=== PATIENT | female | born 1975 | race Caucasian/White ===

== ENCOUNTER → 2022-06-05 14:51 | Outpatient (CLI) | payer OTHER, SELFPAY ==
[2022-06-05 15:27] LABS: COVID19 -Nasal RAPID Negative (Negative)
== END ==
PROVIDERS: PCP Family Medicine; Visit Provider Obstetrics & Gynecology
DX: Z01.812 Encounter for preprocedural laboratory examination (principal); Z20.822 Contact with and (suspected) exposure to COVID-19
CPT/HCPCS: 87635

== ENCOUNTER 2022-06-07 14:44 | Inpatient (IN) | payer OTHER, SELFPAY ==
[2022-05-31 07:13] VITALS: BMI 39.6
[2022-06-06] VITALS (17 sets, daily range): BP systolic 143–165; BP diastolic 89–110; PULSE 81–105; RESP 16–27; TEMP 36.4–37.2; O2SAT 94–98; BMI 39.6; BMI 40.2
--- NOTE | 2022-06-06 | PATH_ITS ---
[facility] Accession Number: [id number] . 01 Material submitted: . ovary - UTERUS AND LEFT OVARY . 01 Diagnosis: Uterus and Left Ovary, Supracervical Hysterectomy and Left Oophorectomy (Weight 19 grams): No well-preserved endometrial surface identified. Myometrium with involvement by adenomyosis and with a small leiomyoma (4 mm); negative for atypia or malignancy. Ovary with stromal thecosis, a hemorrhagic corpus luteum cyst, and with a benign serous cyst (4 mm); negative for atypia or malignancy. [facility] 06/11/2022 1610 Local . 01 Electronically signed: . Minerva Broderick MD, Pathologist NPI- [id number] . 01 Gross description: . Received in formalin labeled with the patient's name and uterus, left ovary consists of an intact uterus (39 grams, 3.8 cm SI, 5.2 cm ML, and 3.4 cm AP) with ovary (19 grams, 3.6 x 3.1 x 2.5 cm) and no cervix, second ovary or fallopian tubes. Due to the lack of attached adnexa and cervix, orientation cannot be determined. The uterine serosa is ryan smooth and glistening with multiple areas of pinpoint hemorrhage identified measuring up to 0.4 cm in greatest dimension. No endocervical canal is identified. The endometrial cavity measures 1.7 cm from cornu to cornu, 2.6 cm in length with pink to ryan velvety endometrium averaging 0.1 cm thick. Multiple fragments of ryan friable soft tissue are found within the endometrial cavity not adhered to the surface. The myometrium is pink to ryan, well circumscribed, firm, and measures 1.4 cm in maximum thickness. A single white whorled well-circumscribed nodule is identified intramurally measuring 0.4 cm in greatest dimension. No additional lesions, hemorrhage, or necrosis are identified. The ovary is ryan and cerebriform, and sectioning reveals multiple smooth thin-walled cystic structures filled with ryan serous fluid and measuring up to 1.3 cm in greatest dimension. Also identified is a pale yellow ryan relatively ill-defined area measuring 3.3 cm in greatest dimension. Minimal physiologic tissue is identified and is distorted by the cystic structures. Rotary Drier sections are submitted as follows: . A1: Full-thickness section. A2: Opposite full-thickness section. A3: Nodule, serosal hemorrhagic area, and endometrial tissue fragment. A4-A5: Rotary Drier ovary. ([id number]) /MRV 06/07/2022 1508 Local . 01 Pathologist provided ICD-10: Z87.410, N99.89, N94.9 . 01 CPT . 878416 Specimen Comment: A courtesy copy of this report has been sent to [phone] Performed at: 01 [facility] [address] [place] [address], [place], [place] [id number] MD Uriel Kamara MD Phone: [phone]
[2022-06-06] MEDS: LACTATED RINGERS 1,000 ML 100 ML IV ×5 (08:14→15:36)
[2022-06-06] MEDS: SCOPOLAMINE 1 PATCH TOP (08:35)
[2022-06-06] MEDS: ONDANSETRON 4 MG/2 ML INJ IV (08:36)
--- NOTE | 2022-06-06 10:06 | SUR.OPER ---
Lithotomy on padded OR bed. [place] Pad Positioner under torso. Head on pillow, arms padded and tucked at sides. Legs secured in padded yellow fins stirrups.
--- NOTE | 2022-06-06 10:39 | PM.PREOP ---
Pre-operative Note COVID-19 COVID-19 status: Negative Result date/Date tested (Pos, Neg/Pending): 06/05/22 Criteria for continued procedure: Deterioration of the patient's condition or overall health and Non-surgical alternatives not available or appropriate per current SOC Interval Note History & Physical reviewed/Exam performed by Physician: Yes Changes to H&P: No H&P completed within 30 days and has changed as indicated here:: 05/30/22
[2022-06-06] MEDS: CEFAZOLIN 2 GM/100 ML PREMIX 100 ML IV (10:45)
[2022-06-06] MEDS: BUPIVACAINE 0.5% W/ EPI (PF) 30 ML VIAL INJ (11:41)
--- NOTE | 2022-06-06 13:05 | PM.GYNOP.1 ---
Operative Date/Time/Diagnoses Date of procedure: 06/06/22 Time of procedure: 13:05 Pre-op diagnosis: Endosalpingiosis Left lower quadrant pain Genital warts Post-op diagnosis: same Procedure & Clinicians Procedure: Procedures Operation Date: 06/06/22 09:30 Actual Procedure Side Surgeon p Open Supracervical hysterectomy & left oophorectomy, destruction genital warts Blanca Rodas MD Indications: Endosalpingiosis Left lower quadrant pain Genital warts Surgeon: Blanca Rodas Agricultural Production Engineer: Yoli Francis Anesthesia Type: General and Local Operative Notes Findings: 6 week size anteverted uterus Extensive adhesions around the umbilicus on the anterior abdominal wall Tubes previously removed Enlarged left ovary Left adnexal adhesions Six genital wart lesions on the left vulva and 1 on the proximal right buttocks Closure Type: primary Specimen(s): uterus (Left ovary) Applied: catheter Estimated blood loss (mL): 100 Blood products transfused: none Procedure in detail: Patient was taken to the operating room where she was placed in the dorsal supine position. After adequate general endotracheal anesthesia was achieved, she was placed in the dorsal lithotomy position, and prepped and draped in the usual sterile fashion. A time-out was performed. A bivalve speculum was placed into the vagina and the anterior lip of the cervix was grasped with a single-tooth tenaculum. The cervical os was sequentially dilated until the Zumi uterine manipulator could pass easily into the endometrial cavity. Single-tooth tenaculum was removed from the anterior lip of the cervix. [place] speculum was removed from the vagina. Attention was turned to the abdomen where 6 cc of 0.5% Marcaine with epinephrine were injected in the umbilical fold. A 5 mm incision was made. The long Veress needle was placed into the peritoneal cavity, and its placement confirmed by aspiration and drop test. On initial insufflation with carbon dioxide, the pressures were high in the 12-15 millimeter mercury range. Veress needle was removed. One more attempt was made and still had high pressures. Decision was made to proceed with a Hasan open procedure. The incision was extended to 2 cm. Allis clamps were placed at the edges of the incision. The incision was brought down to the fascia which was incised in the midline. Upon getting close to the peritoneum, there were adhesions of the anterior abdominal wall. A decision was made to proceed with open procedure. A Pfannenstiel skin incision was made 2 finger breaths above the pubic symphysis and carried through to the underlying layer of fascia. Fascia was nicked in the midline in the incision extended bilaterally with the Louis scissors. The superior aspect of the fascial incision was grasped with the Olivia clamps, elevated, and the underlying rectus muscles dissected off sharply and bluntly. The inferior aspect of this incision was grasped with the Olivia clamps, elevated, and the underlying rectus muscles dissected off sharply and bluntly. The rectus muscles were in the midline. The peritoneum was grasped between 2 hemostats and entered sharply with the Metzenbaum scissors. This incision was extended superiorly and inferiorly with good visualization of the bladder. The Josie Gleason retractor was placed into the incision and the bowel packed away with moist lap sponges. Bladder blade was inserted. The uterus was grasped with a 4 tooth tenaculum. The round ligament on the right side was clamped, transected, and suture ligated with 0 Vicryl. This was tagged with a hemostat. The broad ligament was entered sharply with the Metzenbaum scissors and the bladder flap created half-way across. The uterine arteries on the right side were clamped, transected, and suture ligated with 0 Vicryl. On the left side the round ligament was clamped, transected, and suture ligated with 0 Vicryl. This was tagged with a hemostat. The infundibulopelvic ligament on the left side was doubly clamped, transected, free tied with 0 Vicryl and then suture ligated with 0 Vicryl. Hemostasis was achieved. The broad ligament was entered with the Metzenbaum scissors and the remainder of the bladder flap was created sharply. Using a moistened sponge stick, bladder was taken down off of the lower uterine segment and cervix. The uterine arteries on the left side were doubly clamped, transected, and suture ligated with 0 Vicryl. The Zumi uterine manipulator was removed from the uterus. Using the cautery, the uterus was amputated from the cervix. The cervix was closed with 4 simple interrupted sutures with 0 Vicryl. Hemostasis was achieved. Pelvis was copiously irrigated with warm normal saline. There was no bleeding noted. The tagged sutures were cut. The lap sponges were removed from the abdomen. The O'Garo JamesSantos retractor was removed from the incision. Peritoneum was closed with 2 0 Vicryl in a running fashion. The fascia was reapproximated using 0 Vicryl in a running fashion. Six simple interrupted sutures with 3-0 Vicryl were used to reapproximate subcutaneous layer. Skin was closed with 4-0 Monocryl in a subcuticular fashion. Steri-Strips and the Aquacel dressing were placed. At the umbilicus the fascia was closed with 0 Vicryl. Subcutaneous layer was closed with 2 simple interrupted sutures with 3-0 Vicryl. The skin was closed with 4-0 Monocryl in a subcuticular fashion. Steri-Strips and an Allevyn dressing were placed. Attention was then turned to the vulva where 6 condyloma acuminata were cauterized with 2 sources of suction. All personnel were wearing 3:00 a.m. masks in the operating room. Sponge, lap, and instrument counts were correct x2. The patient tolerated the procedure well, and was taken to PACU in stable condition. Complications: none Post-operative Condition: stable Disposition: PACU Plan for aftercare: To acute care after recovery
[2022-06-06] MEDS: HYDROMORPHONE 2 MG INJ IV ×8 (13:13→14:26)
[2022-06-06] MEDS: OXYCODONE/ACETAMINOPHEN 5/325 TABLET 1 TAB PO ×2 (13:16→13:46)
[2022-06-06] MEDS: fentaNYL 100 MCG/2 ML INJ IV ×4 (13:26→13:52)
--- NOTE | 2022-06-06 14:32 | SUR.PHASEI ---
Assumed care. VS stable. Patient awake, repositioned to comfort.
--- NOTE | 2022-06-06 15:06 | SUR.PHASEI ---
Report called to [facility].
--- NOTE | 2022-06-06 15:32 | SUR.PHASEI ---
Patient transferred to the floor on a bed with her belongings bag. Report given to UMAIR Lee. VS stable. Lilly-pad and abdominal dressings CDI. IV saline locked.
[2022-06-06] MEDS: KETOROLAC 30 MG/ML VIAL IV ×2 (15:36→21:17)
[2022-06-06] MEDS: ACETAMINOPHEN 325 MG TABLET 650 MG PO (16:28)
[2022-06-06] MEDS: OXYCODONE IR 5 MG TABLET PO ×2 (16:28→18:05)
[2022-06-06] MEDS: LORATADINE 10 MG TABLET 40 MG PO (18:05)
[2022-06-06] MEDS: MONTELUKAST 10 MG TABLET PO (18:05)
[2022-06-06] MEDS: METOCLOPRAMIDE 10 MG/2 ML INJ IV (18:29)
[2022-06-06] MEDS: HYDROMORPHONE 0.5 MG INJ IV ×2 (18:33→20:26)
[2022-06-06] MEDS: DOCUSATE 100 MG CAPSULE 200 MG PO (20:25)
[2022-06-06] MEDS: LOSARTAN 50 MG TABLET PO (21:16)
[2022-06-06] MEDS: OXYCODONE IR 10 MG TABLET PO (21:16)
[2022-06-06] MEDS: HYDROMORPHONE 0.5 MG INJ 1 MG IV (23:21)
[2022-06-07] VITALS (7 sets, daily range): BP systolic 132–153; BP diastolic 68–98; PULSE 70–94; RESP 18; TEMP 36–36.6; O2SAT 96–97
[2022-06-07] MEDS: OXYCODONE IR 10 MG TABLET PO ×3 (01:29→13:53)
[2022-06-07] MEDS: LACTATED RINGERS 1,000 ML 100 ML IV ×2 (01:47→11:32)
[2022-06-07] MEDS: HYDROMORPHONE 0.5 MG INJ 1 MG IV ×6 (02:16→23:58)
[2022-06-07] MEDS: KETOROLAC 30 MG/ML VIAL IV ×2 (03:22→09:43)
--- NOTE | 2022-06-07 06:03 | PC.NURSE ---
Patient's urinary catheter removed at 0550, pt DTV, tolerated well. Scant vaginal drainage. Patient stood at bedside with assist, tolerated well.
[2022-06-07 06:24] LABS: Add Manual Diff / Slide Review NO; Basophils Absolute Auto 0 /uL (0-100); Basophils Percent Auto 0.4 % (0-2); Eosinophils Absolute Auto 0 /uL (0-450); Hematocrit 38.6 % (36-46); Hemoglobin 13.3 g/dL (12.0-16.0); Lymphocytes Absolute Auto 1300 /uL (1100-4500); Lymphocytes Percent Auto 14.1 % (25-40); Mean Corpuscular HGB Conc 34.5 % (30-36); Mean Corpuscular Hemoglobin 32.2 PG (26-34); Mean Corpuscular Volume 93.3 fL (80-100); Monocytes Absolute Auto 800 /uL (0-900); Monocytes Percent Auto 8.7 % (3-14); Neutrophils Absolute Auto 7100 /uL (1500-7000); Neutrophils Percent Auto 76.8 % (50-75); Platelet Count 199 X10^3/uL (150-400); Red Blood Cell Count 4.14 X10^6/uL (4.0-5.2); Red Cell Distribution Width 13.2 % (11.6-14.8); White Blood Cell Count 9.2 X10^3/uL (4.5-11.0)
[2022-06-07] MEDS: ACETAMINOPHEN 325 MG TABLET 650 MG PO ×2 (07:53→13:53)
[2022-06-07] MEDS: MONTELUKAST 10 MG TABLET PO (08:42)
[2022-06-07] MEDS: LOSARTAN 50 MG TABLET PO ×2 (08:42→20:32)
[2022-06-07] MEDS: DOCUSATE 100 MG CAPSULE 200 MG PO ×2 (08:42→20:32)
[2022-06-07] MEDS: valACYclovir 500 MG TABLET PO (08:42)
[2022-06-07] MEDS: LORATADINE 10 MG TABLET 40 MG PO (08:46)
[2022-06-07] MEDS: estradioL 1 MG TABLET 0.5 MG PO (09:43)
--- NOTE | 2022-06-07 12:01 | P.PN_ITS ---
Subjective Subjective Date Patient Seen: 06/07/22 Time Patient Seen: 09:30 Interval history: Patient is a 47-year-old 0 postop day # 1 status post an open ybrne pracervical hysterectomy with left oophorectomy. An attempt at laparoscopy was made but due to adhesions was unable to complete laparoscopic LEEP. Patient had some pain management issues last evening. These have resolved this morning. She is tolerating a diet. She has voided twice without the catheter. Exam Vital Signs (past 8 hours): - 06/07/22 08:42 06/07/22 10:21 Temperature 97.5 F L Pulse Rate 77 81 Respiratory Rate 18 Blood Pressure 132/77 153/98 H Pulse Oximetry 97 Oxygen Delivery Method Room Air Oxygen Flow Rate 0 Narrative Exam Narrative: Generally: Patient is sitting up in bed, no acute distress Lungs: Clear to auscultation bilaterally Cardiovascular: Regular rate and rhythm Abdomen: Soft, appropriately tender. Good bowel sounds. Incision: Umbilical incision clean dry and intact with dressing. Pfannenstiel incision clean dry and intact with Aquacel. Extremities: Negative Homans Objective Labs Result Diagrams: 06/07/22 06:00 Labs: Laboratory Results - last 24 hr 06/07/22 06:00 WBC 9.2 RBC 4.14 Hgb 13.3 Hct 38.6 MCV 93.3 MCH 32.2 MCHC 34.5 RDW 13.2 Plt Count 199 Neut % (Auto) 76.8 H Lymph % (Auto) 14.1 L Frontier % (Auto) 8.7 Eos % (Auto) 0.0 L Baso % (Auto) 0.4 Neut # (Auto) 7100 H Lymph # (Auto) 1300 Frontier # (Auto) 800 Eos # (Auto) 0 Baso # (Auto) 0 PFSH Medical History Abnormal Pap smear of cervix (~2008) Allergies (~1989) Carpal tunnel syndrome (~2016) Chicken pox (~1983) Chronic back pain (~2012) Difficult intubation Genital warts (~1997) Headache (~2009) Heavy menstrual period (~2014) Human papilloma virus (~2005) Hypertension (~2010) Irregular menstrual cycle (~1999) Migraines (~2015) Ovarian cyst (~2008) Painful menstrual periods (~2011) Recurrent sinusitis (~2011) Surgical History (Updated 05/31/22 @ 07:13 by Malaika Ochoa RN) Anesthesia History of oophorectomy (~09/27/21) History of salpingectomy (~09/27/21) S/P T&A (status post tonsillectomy and adenoidectomy) Status post cataract surgery Status post endometrial ablation Family History (Updated 04/09/22 @ 15:24 by Natalya Redd) Father Multiple sclerosis Mother COVID-19 Social History household members: spouse Smoking Status: Former smoker alcohol intake: current Assessment & Plan Post-op Postoperative Procedures: Procedures Operation Date: 06/06/22 09:30 Actual Procedure Side Surgeon p Open Supracervical hysterectomy & left oophorectomy, destruction genital warts Blanca Rodas MD Postoperative day: 1 Postoperative status: doing well Postoperative plan: routine post-op care Postoperative plan narrative: Restart estradiol Time Spent With Patient Time with patient: 15-24 minutes Quality VTE Deep Vein Thrombosis/Pulmonary Embolism Present on Admission: No
[2022-06-07] MEDS: IBUPROFEN 600 MG TABLET PO ×2 (15:48→22:41)
[2022-06-07] MEDS: methocarbamoL 500 MG TABLET PO (22:41)
[2022-06-08] VITALS (9 sets, daily range): BP systolic 129–173; BP diastolic 92–112; PULSE 74–86; RESP 14–18; TEMP 35.7–37; O2SAT 96–98
[2022-06-08] MEDS: OXYCODONE IR 10 MG TABLET PO ×4 (02:39→18:14)
[2022-06-08] MEDS: ACETAMINOPHEN 325 MG TABLET 650 MG PO ×4 (02:40→21:18)
--- NOTE | 2022-06-08 02:46 | PC.NURSE ---
Day shift nurse reported fluids were disconnected per patient request. Reattempted to connect IVF, patient declined stating she is drinking water and voiding clear light yellow urine.
[2022-06-08] MEDS: HYDROMORPHONE 0.5 MG INJ 1 MG IV (06:17)
--- NOTE | 2022-06-08 08:51 | CM.DANOTE ---
Initial DCP Assessment Note Pt is a 47 yo female, resident of [place], met w/patient and spouse POD#1 from open supracervical hysterectomy with left oophorectomy by Dr Rodas PCP: Adrian Anderson Payer: Eddie YOUNGER Reviewed chart, pt discussed in multidisciplinary rounds .11.27; expected to DC .12.25 Patient tells this RECORDS MANAGER that she is confident returning home upon DC to the care and support of her [place]. Patient feels she has all she needs for her recovery once home. No barriers identified at this time to patient's safe discharge home w/spouse to assist; close outpatient f/u recommended. RADHA Hood Discharge Planning/Care Management CM Discharge Assessment Start: 06/08/22 08:48 Freq: Status: Active Protocol: Document 06/08/22 08:48 JESSICA (Rec: 06/08/22 08:51 JESSICA [id number]) Discharge Planning Assessment Assigned [employer] Director RADHA Lucio DPOA/Assigned Designee Name [place], spouse Contact Information [phone], cell Advance Directives? No History Provided By Patient,Medical Record Has Patient been admitted in last 30 No days? Prior Living Arrangements House Household Members spouse Type of transporation used prior to Drives own vehicle admit Independent with ADL's Yes Is patient alert and oriented? Yes Barriers to Discharge No Comment Home w/spouse and close outpatient follow up Discharge Plan Home Referrals Initiated None needed
[2022-06-08] MEDS: IBUPROFEN 600 MG TABLET PO ×4 (09:45→23:11)
[2022-06-08] MEDS: DOCUSATE 100 MG CAPSULE 200 MG PO ×2 (09:48→19:55)
[2022-06-08] MEDS: MONTELUKAST 10 MG TABLET PO (09:49)
[2022-06-08] MEDS: LOSARTAN 50 MG TABLET PO ×2 (09:49→19:56)
[2022-06-08] MEDS: LORATADINE 10 MG TABLET 40 MG PO (09:50)
[2022-06-08] MEDS: estradioL 1 MG TABLET 0.5 MG PO (09:52)
[2022-06-08] MEDS: valACYclovir 500 MG TABLET PO (11:32)
[2022-06-08] MEDS: methocarbamoL 500 MG TABLET PO ×3 (14:13→23:15)
[2022-06-08] MEDS: HYDROMORPHONE 2 MG TABLET PO ×2 (15:20→19:35)
--- NOTE | 2022-06-08 15:25 | PM.PNPO.1 ---
Subjective Subjective Date Patient Seen: 06/08/22 Time Patient Seen: 09:30 Interval history: Patient is a 47-year-old 2 para 0 postop day # 2 status post open supracervical hysterectomy with left oophorectomy. Patient has been getting IV to lot it for breakthrough pain. She has not been getting scheduled Tylenol and ibuprofen. She is still having burning at the incision. Exam Vital Signs (past 8 hours): - 06/08/22 07:49 06/08/22 11:31 06/08/22 07:40 Temperature 96.6 F L 96.6 F L Pulse Rate 81 76 Respiratory Rate 16 16 Blood Pressure 163/103 H 129/92 H Pulse Oximetry 98 98 Oxygen Delivery Method Room Air Oxygen Flow Rate 0 0 Oxygen Delivery Method Room Air Oxygen Flow Rate 0 Narrative Exam Narrative: Generally: Patient is sitting up in bed, no acute distress Lungs: Clear to auscultation bilaterally Cardiovascular: Regular rate and rhythm Abdomen: Soft, appropriately tender. Good bowel sounds. Incisions: Clean dry and intact with bandages. Ice pack present on lower incision. Extremities: Negative Homans, no edema Objective Labs Result Diagrams: 06/07/22 06:00 [facility] Medical History Abnormal Pap smear of cervix (~2008) Allergies (~1989) Carpal tunnel syndrome (~2016) Chicken pox (~1983) Chronic back pain (~2012) Difficult intubation Genital warts (~1997) Headache (~2009) Heavy menstrual period (~2014) Human papilloma virus (~2005) Hypertension (~2010) Irregular menstrual cycle (~1999) Migraines (~2015) Ovarian cyst (~2008) Painful menstrual periods (~2011) Recurrent sinusitis (~2011) Surgical History (Updated 05/31/22 @ 07:13 by Malaika Ochoa RN) Anesthesia History of oophorectomy (~09/27/21) History of salpingectomy (~09/27/21) S/P T&A (status post tonsillectomy and adenoidectomy) Status post cataract surgery Status post endometrial ablation Family History (Updated 04/09/22 @ 15:24 by Natalya Redd) Father Multiple sclerosis Mother COVID-19 Social History household members: spouse Smoking Status: Former smoker alcohol intake: current Assessment & Plan Post-op Postoperative Procedures: Procedures Operation Date: 06/06/22 09:30 Actual Procedure Side Surgeon p Open Supracervical hysterectomy & left oophorectomy, destruction genital warts Blanca Rodas MD Postoperative day: 2 Postoperative status: marginal pain control Postoperative plan narrative: Scheduled ibuprofen and Tylenol today Primary pain medication oxycodone Dilaudid for breakthrough pain only Anticipate discharge June 09, 2022 Time Spent With Patient Time with patient: 15-24 minutes Quality VTE Deep Vein Thrombosis/Pulmonary Embolism Present on Admission: No
[2022-06-08] MEDS: OXYCODONE IR 5 MG TABLET PO (23:10)
[2022-06-09] VITALS (7 sets, daily range): BP systolic 145–157; BP diastolic 92–112; PULSE 74–88; RESP 16–18; TEMP 36.4–36.5; O2SAT 94–97
[2022-06-09] MEDS: OXYCODONE IR 10 MG TABLET PO ×5 (01:21→20:14)
[2022-06-09] MEDS: methocarbamoL 500 MG TABLET PO ×2 (05:13→17:16)
[2022-06-09] MEDS: ACETAMINOPHEN 325 MG TABLET 650 MG PO ×4 (05:13→21:35)
[2022-06-09] MEDS: IBUPROFEN 600 MG TABLET PO ×4 (05:13→23:55)
[2022-06-09] MEDS: LORATADINE 10 MG TABLET 40 MG PO (08:45)
[2022-06-09] MEDS: DOCUSATE 100 MG CAPSULE 200 MG PO ×2 (08:45→20:14)
[2022-06-09] MEDS: LOSARTAN 50 MG TABLET PO ×2 (08:45→20:15)
[2022-06-09] MEDS: valACYclovir 500 MG TABLET PO (08:45)
[2022-06-09] MEDS: MONTELUKAST 10 MG TABLET PO (08:45)
[2022-06-09] MEDS: estradioL 1 MG TABLET 0.5 MG PO (08:45)
[2022-06-09] MEDS: AMPICILLIN/SULBACTAM 3 GM 3 GM in SODIUM CHLORIDE 0.9% 100 ML IV ×3 (11:18→23:25)
--- NOTE | 2022-06-09 12:14 | PM.PNPO.1 ---
Subjective Subjective Date Patient Seen: 06/09/22 Time Patient Seen: 09:30 Interval history: Postop day # 3 status post open supracervical hysterectomy with left oophorectomy. Patient reports that she has continued to have pain management issues. She is having more abdominal pain. She is passing flatus. Exam Vital Signs (past 8 hours): - 06/09/22 05:25 06/09/22 08:45 06/09/22 09:30 Temperature 97.5 F L Pulse Rate 88 88 75 Respiratory Rate 16 16 Blood Pressure 155/92 H 155/92 H 150/102 H Pulse Oximetry 96 97 Oxygen Delivery Method Oxygen Flow Rate 0 0 06/09/22 07:00 Temperature Pulse Rate Respiratory Rate Blood Pressure Pulse Oximetry Oxygen Delivery Method Room Air Oxygen Flow Rate Oxygen Delivery Method Room Air Oxygen Flow Rate 0 Narrative Exam Narrative: Generally: Patient lying in bed, no acute distress Abdomen: There is a dressing over the umbilical incision. He there is an Aquacel dressing over the Pfannenstiel incision. In between the 2 bandages there is an erythematous area that is warm to touch. Extremities: Trace edema, negative Homans Objective Labs Result Diagrams: 06/07/22 06:00 [facility] Medical History Abnormal Pap smear of cervix (~2008) Allergies (~1989) Carpal tunnel syndrome (~2016) Chicken pox (~1983) Chronic back pain (~2012) Difficult intubation Genital warts (~1997) Headache (~2009) Heavy menstrual period (~2014) Human papilloma virus (~2005) Hypertension (~2010) Irregular menstrual cycle (~1999) Migraines (~2015) Ovarian cyst (~2008) Painful menstrual periods (~2011) Recurrent sinusitis (~2011) Surgical History (Updated 05/31/22 @ 07:13 by Malaika Ochoa RN) Anesthesia History of oophorectomy (~09/27/21) History of salpingectomy (~09/27/21) S/P T&A (status post tonsillectomy and adenoidectomy) Status post cataract surgery Status post endometrial ablation Family History (Updated 04/09/22 @ 15:24 by Natalya Redd) Father Multiple sclerosis Mother COVID-19 Social History household members: spouse Smoking Status: Former smoker alcohol intake: current Assessment & Plan Post-op Postoperative Procedures: Procedures Operation Date: 06/06/22 09:30 Actual Procedure Side Surgeon p Open Supracervical hysterectomy & left oophorectomy, destruction genital warts Blanca Rodas MD Postoperative day: 3 Postoperative status narrative: Cellulitis of the abdominal wall between umbilicus and Pfannenstiel Begin IV antibiotics Postoperative plan: see orders Postoperative plan narrative: IV antibiotics Time Spent With Patient Time with patient: 15-24 minutes Quality VTE Deep Vein Thrombosis/Pulmonary Embolism Present on Admission: No
[2022-06-09] MEDS: HYDROMORPHONE 2 MG TABLET PO ×2 (17:16→23:09)
--- NOTE | 2022-06-09 17:51 | PC.NURSE ---
Pt is AxOx4, independent and cooperative. VSS, mostly c/o pain abdomen and constantly asking for pain med around the clock. Pt also has redness above the incision and it is also painful. Pt is getting IV Unasyn 3g for cellulites. Otherwise, pt is doing well and eating well. Pt took a shower today. No other changes. Continue monitor.
[2022-06-10] VITALS: BP 164/99
[2022-06-10] MEDS: OXYCODONE IR 10 MG TABLET PO ×4 (00:48→12:12)
[2022-06-10] MEDS: ACETAMINOPHEN 325 MG TABLET 650 MG PO ×2 (03:51→10:40)
[2022-06-10] MEDS: HYDROMORPHONE 2 MG TABLET PO ×2 (03:51→07:11)
[2022-06-10 03:55] VITALS: BP 154/96; PULSE 81; RESP 14; TEMP 36.3; O2SAT 98
[2022-06-10] MEDS: AMPICILLIN/SULBACTAM 3 GM 3 GM in SODIUM CHLORIDE 0.9% 100 ML IV ×2 (05:16→10:17)
[2022-06-10] MEDS: IBUPROFEN 600 MG TABLET PO ×2 (05:24→11:17)
[2022-06-10 08:02] VITALS: BP 150/102; PULSE 71; RESP 16; TEMP 36.6; O2SAT 98
[2022-06-10 08:25] VITALS: BP 152/102; PULSE 71
[2022-06-10] MEDS: LOSARTAN 50 MG TABLET PO (08:25)
[2022-06-10] MEDS: valACYclovir 500 MG TABLET PO (08:26)
[2022-06-10] MEDS: polyethylene glycoL 3350 17 GM POWD.PACK PO (08:26)
[2022-06-10] MEDS: MONTELUKAST 10 MG TABLET PO (08:26)
[2022-06-10] MEDS: DOCUSATE 100 MG CAPSULE 200 MG PO (08:26)
[2022-06-10] MEDS: LORATADINE 10 MG TABLET 40 MG PO (08:26)
[2022-06-10] MEDS: estradioL 1 MG TABLET 0.5 MG PO (08:27)
[2022-06-10] MEDS: methocarbamoL 500 MG TABLET PO (08:27)
--- NOTE | 2022-06-10 12:15 | PC.NURSE ---
Pt is AxOx4, independent and cooperative. VSS, c/o pain on abd and recieves her scheduled Tylenol and Ibuprofen.Also, pt is getting joey PRN Oxy Q4 hrs with good effect. Redness above incision has gotten better and decreased the size since yesterday. D/c instruction given to pt and explained the s/e of opioid and encouraged to drink plenty of fluid and eating vegetables and fibers. No other changes. Pt is ready to d/c home.
--- NOTE | 2022-08-17 18:16 | P.DS_ITS ---
History of Present Illness History of Present Illness Date Patient Seen: 06/10/22 Time Patient Seen: 10:30 Chief complaint: [facility] *OPB Narrative: 47-year-old 2 para 0 with pelvic pain status post endometrial ablation. Also diagnosis of endosalpingiosis. Discharge Providers Provider Date of admission: 06/07/22 14:44 Discharge Date: 06/10/22 Primary care physician: Ed Anderson MD Discharge provider: Blanca oRdas MD Summary Hospital Course Discharge Diagnosis: Endosalpingiosis Extensive abdominal/pelvic adhesions Left adnexal adhesions Condyloma acuminata Cellulitis around the surgical wound Hospital Course: Patient is a 47-year-old who presented on June 06, 2022 for a scheduled laparoscopic supracervical hysterectomy with left oophorectomy and destruction of genital warts. Due to adhesions, an open procedure was performed. Her Rios catheter was removed on postop day #1. She was able to void without the catheter. She did have some pain management issues which were requiring IV Dilaudid. On June 08, 2022 patient was still having some pain management issues and we began scheduled medications. On June 09, 2022 she had more abdominal pain and had erythema around the incision consistent with cellulitis. She was started on IV antibiotics. On June 10, 2022 significantly decreased erythema and warmth around the incision. She was discharged home on postop day # 4. Status at Discharge Cognitive/behavioral status at discharge: oriented Functional status at discharge: independent ambulation Overall status at discharge: patient is progressing back to baseline Time Spent with Patient Time spent: Less than 30 minutes Exam Vital Signs (past 8 hours): Oxygen Delivery Method Room Air Oxygen Flow Rate 0 Narrative Exam Narrative: Generally: Patient is sitting up in bed, no acute distress Lungs: Clear to auscultation bilaterally Cardiovascular: Regular rate and rhythm Abdomen: Soft, appropriately tender. Incision: Aquacel dressing in place. Significantly decreased erythema and warmth around the incision. Extremities: No edema, negative Homans Objective Labs Result Diagrams: 06/07/22 06:00 [facility] Medical History (Updated 06/18/22 @ 16:05 by Blanca Rodas MD) Abnormal Pap smear of cervix (~2008) Allergies (~1989) Carpal tunnel syndrome (~2016) Chicken pox (~1983) Chronic back pain (~2012) Difficult intubation Genital warts (~1997) Headache (~2009) Heavy menstrual period (~2014) Human papilloma virus (~2005) Hypertension (~2010) Irregular menstrual cycle (~1999) Migraines (~2015) Ovarian cyst (~2008) Painful menstrual periods (~2011) Recurrent sinusitis (~2011) Surgical History (Updated 05/31/22 @ 07:13 by Malaika Ochoa RN) Anesthesia History of oophorectomy (~09/27/21) History of salpingectomy (~09/27/21) S/P T&A (status post tonsillectomy and adenoidectomy) Status post cataract surgery Status post endometrial ablation Family History (Updated 04/09/22 @ 15:24 by Natalya Redd) Father Multiple sclerosis Mother COVID-19 Social History household members: spouse Smoking Status: Former smoker alcohol intake: current Discharge Assessment & Plan Assessment and Plan Assessment: 47-year-old 2 para 0 postop day #4 status post open supracervical hysterectomy with left oophorectomy and destruction of condyloma acuminata of the vulva Superficial cellulitis of the abdomen which is markedly improved Plan of Treatment: Discharge to home Follow-up in 1 week Discharge Plan Discharge Plan Patient Disposition: Home Provider Discharge Comment: Call with fever, chills, redness or drainage around the incisions Tylenol 650mg every 6 hours as needed Ibuprofen 600mg every 6 hours as needed Probiotics Discharge orders & Medications Prescriptions: New oxycodone 10 mg tablet 10 mg PO Q6H PRN (Reason: pain) Qty: 30 0RF hydromorphone [Dilaudid] 2 mg tablet 2 mg PO Q6H PRN (Reason: pain) Qty: 30 0RF amoxicillin-pot clavulanate 875-125 mg tablet 1 tab PO BID Qty: 14 0RF Continued ondansetron HCl 4 mg tablet 4 mg PO Q8H PRN (Reason: Nausea) losartan 50 mg tablet 50 mg PO BID valacyclovir 500 mg tablet 500 mg PO DAILY montelukast [Singulair] 10 mg tablet 10 mg PO DAILY loratadine [Claritin] 10 mg tablet 40 mg PO DAILY methocarbamol 500 mg tablet 500 mg PO QID PRN (Reason: Muscle Spasm) estradiol 0.5 mg tablet 0.5 mg PO DAILY Qty: 30 3RF oxycodone 5 mg tablet 5 mg PO Q4H PRN (Reason: pain) Qty: 20 0RF No Action lidocaine 4 % gel 1 applic topical BID-QID PRN (Reason: pain) Qty: 30 1RF Rx Instructions: apply 0.25 gm to affected area 4x/day as needed silver sulfadiazine [Silvadene] 1 % cream 1 applic topical BID Qty: 50 0RF Rx Instructions: apply 0.25 gm to affected areas twice a day until healed Follow up/Referrals: Blanca Rodas MD [Physician] - 06/18/22 (Pt has postop appt on 06/18/22) Diet/Activity/Treatments Diet: Regular Activity: No heavy lifting, nothing more than a gallon of milk Skin/Wound/Dressing Care Report to your healthcare provider any signs of infection, such as:: chills, fever, increased pain, unusual drainage and unusual redness Visit Report/Discharge Packet Instructions: Non-Medication Pain Relief, DI for Hysterectomy, DI for Laparoscopy, DI for Constipation, DI for Prescription Opioid Use, DI for Taking Pain Medication Discharge Data Primary Care Provider: Adrian Anderson [facility] Deep Vein Thrombosis/Pulmonary Embolism Present on Admission: No
== END 2022-06-10 12:54 | disposition home or self-care (01) | DRG 742 ==
LOC: OR 15:09 → AC 15:11
PROVIDERS: Admitting Provider Obstetrics & Gynecology; PCP Family Medicine; Referring Provider Obstetrics & Gynecology; Visit Provider Obstetrics & Gynecology
PROC: 0UT94ZL Resection of Uterus, Supracervical, Percutaneous Endoscopic Approach (ICD-10-PCS; principal; 2022-06-06 09:30)
DX: N94.89 Other specified conditions associated with female genital organs and menstrual cycle (principal); L03.311 Cellulitis of abdominal wall; A63.0 Anogenital (venereal) warts; K66.0 Peritoneal adhesions (postprocedural) (postinfection); I10 Essential (primary) hypertension; Z87.891 Personal history of nicotine dependence; Z20.822 Contact with and (suspected) exposure to COVID-19
CPT/HCPCS: 36415; 56501; 58180; 85025; 87635; J0295; J0360; J0690; J1100; J1170; J1885; J2250; J2405; J2704; J2765; J3010